=== PATIENT | female | born 1975 | race American Indian/Alaskan Native ===

== ENCOUNTER 2017-08-03 11:13 | Emergency (ER) | payer SELFPAY ==
[2017-08-03] MEDS ORDERED: DUONEB *Not for PRN Use IH ONE (15:47)
--- NOTE | 2017-08-03 15:53 | Emergency Department Report ---
Minor Respiratory - HPI Chief Complaint: Upper Respiratory Infection Stated Complaint: ccc Time Seen by Provider: 08/03/17 15:17 Duration: 3 Days Pain Location: Throat Severity: mild Minor Respiratory: Yes Sore Throat, Yes Able to Tolerate Fluids, Yes Cough, Yes Fever, No Rhinorrhea, No Ear Pain, No Sick Contacts, No Hemoptysis, No Chest Pain, No Shortness of Breath Other History: Patient comes to the ER today with a several day history of fever reported to be's high as 102. Along with cold cough and congestion. She does have a history of asthma. She is worried friend's influenza ED Review of Systems ROS: Stated complaint: BLURRY VISION/COUGH/SOB Other details as noted in HPI Comment: All other systems reviewed and negative Constitutional: see HPI, chills, fever, malaise Eyes: as per HPI ENT: as per HPI, throat pain Respiratory: see HPI, cough, wheezing. denies: shortness of breath Cardiovascular: as per HPI. denies: chest pain Endocrine: no symptoms reported Gastrointestinal: as per HPI, nausea. denies: abdominal pain, vomiting Genitourinary: as per HPI, hematuria, other. denies: urgency Musculoskeletal: as per HPI (frequent urinary tract infections) Skin: as per HPI Neurological: as per HPI Psychiatric: as per HPI Hematological/Lymphatic: as per HPI ED Past Medical Hx - Past Medical History Previous Medical History?: Yes Hx Hypertension: Yes Hx Asthma: Yes Additional medical history: gall stone - Surgical History Additional Surgical History: ,foot,hysterectomy - Social History Smoking Status: Former Smoker Substance Use Type: Alcohol - Medications Home Medications: Home Medications Medication Instructions Recorded Confirmed Last Taken Type Cephalexin [Keflex] 500 mg PO Q12HR #20 cap 08/03/17 Unknown Rx Fluticasone [Flonase] 1 spray NS QDAY #1 bottle 08/03/17 Unknown Rx predniSONE [Deltasone] 20 mg PO DAILY #5 tablet 08/03/17 Unknown Rx Minor Respiratory Exam - Exam General: Vital signs noted. No distress. Alert and acting appropriately. HEENT: Yes Pharyngeal Erythema, Yes Moist Mucous Membranes, Yes Frontal Tenderness, Yes Maxillary Tenderness, No Pharyngeal Exudates, No Rhinorrhea, No Conjuctival Injection Ear: Both TM Erythema, Neither TM Bulge, Neither EAC Pain, Neither EAC Discharge Neck: Yes Supple, No Adenopathy Lungs: Yes Good Air Exchange, Yes Wheezes (mild bilateral upper), Yes Cough, No Ronchi, No Stridor, No Labored Respirations, No Retractions, No Use of Accessory Muscles, No Other Abnormal Lung Sounds Heart: Yes Regular, No Murmur Abdomen: Yes Normal Bowel Sounds, No Tenderness, No Peritoneal Signs Skin: No Rash, No Edema Neurologic: Alert and oriented, no deficits. Musculoskeletal: Unremarkable. ED Course Vital Signs 08/03/17 12:01 Temperature 98.5 F Pulse Rate 67 Respiratory 16 Rate Blood Pressure 133/82 O2 Sat by Pulse 98 Oximetry - Reevaluation(s) Reevaluation #1: 08/03/17 17:35 Patient is nontoxic non-ill appearing. She has no fever currently. She is ambulatory in the ER. Taking by mouth fluids. Patient reports a 2 day history of fever, cough and congestion concern for flu. Influenza negative chest x-ray no consolidation suggestive of pneumonia. Patient does have a history of asthma with bilateral mild wheezing on admission. Patient has sinus tenderness. Throat erythema no exudates. Denies abdominal pain. No CVA tenderness. Status post hysterectomy. But has noted some bleeding that she thought was vaginal. However UA has hematuria. Patient reports frequent urinary tract infections. Respiratory treatment provided patient reports feeling better. Patient updated on her results of her test. Discharge home with Keflex for coverage for upper respiratory as well as UTI. Urine was cultured given her recurrent UTIs. We' ll need to call her if sensitivity report requires additional antibiotics. ED Medical Decision Making - Radiology Data Radiology results: report reviewed, image reviewed - Medical Decision Making see note - Differential Diagnosis influenza v urti Critical care attestation.: If time is entered above; I have spent that time in minutes in the direct care of this critically ill patient, excluding procedure time. ED Disposition Clinical Impression: Asthma, UTI (urinary tract infection), URTI (acute upper respiratory infection) Disposition: - TO HOME OR SELFCARE Is pt being admited?: No Does the pt Need Aspirin: No Condition: Stable Instructions: Asthma (ED), Urinary Tract Infection in Women (ED) Additional Instructions: Hydrate well with water. Motrin or Tylenol for mild pain or discomfort eat yogurt and and drink buttermilk so that she don't develop yeast infection secondary to antibiotics Medications as ordered today Follow up with your primary care in 48 hours to ensure that responding to medications. Let MD now that she was seen in the ER and he can retrieve the results of culture. Follow up with contact center team lead or paste up artist apprentice for your concerns involving your vision. Return to the emergency room for worsening signs and symptoms including a fever greater than 100.5 that will not come down with Motrin or Tylenol. Prescriptions: Cephalexin [Keflex] 500 mg PO Q12HR #20 cap Fluticasone [Flonase] 1 spray NS QDAY #1 bottle predniSONE [Deltasone] 20 mg PO DAILY #5 tablet Referrals: ANITA DEL REAL MD [Primary Care Provider] - 3-5 Days PACO MATHIAS MD [Staff Physician] - 3-5 Days Time of Disposition: 17:23
[2017-08-03 17:05] LABS: Bacteria,Urine 4+ /HPF (Negative); Bilirubin,Urine NEG (Negative); Blood,Urine SM (Negative); Color,Urine Yellow (Yellow); Mucus,Urine 1+ /HPF; Nitrite,Urine POS (Negative); Urobilinogen,Urine < 2.0 mg/dL (<2.0)
[2017-08-03 17:08] LABS: HCG Qualitative,Urine Negative (Negative)
--- NOTE | 2017-08-03 17:13 | XRay Report ---
FINAL REPORT EXAM: XR CHEST ROUTINE 2V HISTORY: [facility] TECHNIQUE: Two views of the chest Comparison: None FINDINGS: Normal heart size. Lungs are clear and well expanded without focal infiltrate or consolidation. Imaged axial skeleton is unremarkable. There is slight increased density overlying both lung bases likely related to patient's breast tissue/body habitus. Mild marginal osteophytic change thoracic vertebral bodies. IMPRESSION: No acute cardiopulmonary disease.
[2017-08-03 17:49] VITALS: BP 138/82
== END 2017-08-03 17:49 | disposition home or self-care (01) ==
LOC: ED 11:13
DX: N39.0 Urinary tract infection, site not specified (principal); J06.9 Acute upper respiratory infection, unspecified; J45.909 Unspecified asthma, uncomplicated; I10 Essential (primary) hypertension
CPT/HCPCS: 71046; 81001; 81025; 87076; 87086; 87186; 87400; 96372; 99284; J2930